=== PATIENT | female | born 1935 | race Caucasian/White ===

== ENCOUNTER 2017-02-13 13:06 | Emergency (ER) | payer OTHER ==
[~2017-02-13] VITALS: Ht 162.6 cm; Wt 84.5 kg
[2017-02-13] MEDS ORDERED: ZESTORETIC 20-1 EAC1 PO (13:42)
[2017-02-13 13:52] VITALS: BP 126/80
== END 2017-02-13 13:56 | disposition home or self-care (01) ==
LOC: EME 13:06
DX: I10 Essential (primary) hypertension (principal); Z76.0 Encounter for issue of repeat prescription
CPT/HCPCS: 99281; 99283